=== PATIENT | male | born 1980 | race Hispanic/Latino ===

== ENCOUNTER 2020-11-24 12:05 | Outpatient (CLI) | payer OTHER ==
--- NOTE | 2020-11-24 14:23 | Ultrasound Report ---
RENAL ULTRASOUND HISTORY: CHRONIC KIDNEY DISEASE COMPARISON: None. TECHNIQUE: Multiple real-time ultrasonographic grayscale images were obtained of the kidneys and urin nick bladder. FINDINGS: Right kidney: Mild renal cortical thinning. The parenchyma appears slightly increased in echogenicity . No hydronephrosis. Kidney measures 9.1 cm. Left kidney: Mild renal cortical thinning. The parenchyma appears slightly increased in echogenicity. There is a subcentimeter cyst in the left mid kidney. No hydronephrosis. Kidney measures 10.7 cm. Urinary bladder: No significant abnormality. Additional findings: None. IMPRESSION: 1. Mild bilateral renal cortical thinning and slightly increased echogenicity suggestive of chronic m edical renal disease. No acute abnormality identified. Signer Name: Mindy Carrillo MD Signed: 11/24/2020 2:18 PM Workstation Name: [id number]
== END 2020-11-24 12:06 | disposition home or self-care (01) ==
LOC: US 12:05
PROVIDERS: ATTEND Internal Medicine
DX: N28.1 Cyst of kidney, acquired (principal); N18.9 Chronic kidney disease, unspecified
CPT/HCPCS: 76770